=== PATIENT | female | born 1985 | race Caucasian/White ===

== ENCOUNTER 2024-06-10 17:47 | Outpatient (REF) | payer SELFPAY ==
[2024-06-10 17:48] VITALS: BP 123/97; PULSE 92; RESP 16; TEMP 36.3; O2SAT 100; BMI 28.7
--- NOTE | 2024-06-10 18:05 | EDS_ITS ---
HPI HPI - Female History of Present Illness Chief Complaint: Foreign Body Detail of Chief Complaint: Possible vaginal foreign body. Patient denies. Informant: patient Narrative Narrative: 39-year-old female history of hep C currently at the [facility], [facility]. has a concern that there may be a vaginal foreign body possibly drugs. They saw something on her scanner. They want the patient to be examined for it. Patient is willing to have a pelvic exam. She denies any complaints. She denies any pain or bleeding. She has had prior C-sections but no prior hysterectomy. Prior similar symptoms: No Recent Illness/Hospitalization: No PFSH PFSH Allergy/AdvReac Type Severity Reaction Status Date / Time No Known Allergies Allergy Verified 06/10/24 17:50 Social History Smoking Status: Current every day smoker tobacco type: e-cigarettes ROS ROS ED ROS Narrative Patient denies any recent illness. Constitutional Constitutional ED: Denies chills or fever(s) Eyes Eyes: Denies blurry vision ENT ENT ED: Denies ear pain Cardiovascular Cardiovascular: Denies chest pain or palpitations Respiratory/Chest Respiratory/Chest: Denies cough or dyspnea Gastrointestinal Gastrointestinal: Denies abdominal pain Genitourinary Genitourinary ED: Denies dysuria or hematuria Musculoskeletal Musculoskeletal: Denies arthralgias Integumentary Denies abscess Neurologic Neurologic: Denies headache(s) Psychiatric Psychiatric: Denies anxiety or depression Endocrine Endocrinology: Denies heat intolerance Hematologic/Lymphatic Hematologic/Lymphatic: Denies easy bleeding Allergic/Immunologic Allergic/Immunologic ED: Denies mouth swelling or tongue swelling EXAM Physical Exam Narrative Exam Narrative: Well-appearing 39-year-old female sitting upright in bed. 's officer present in the room. Patient no distress. Vital signs stable afebrile. H EENT exam unremarkable. Lungs clear. Heart regular rate and rhythm no murmur rate about 90. Abdomen soft nontender. Normal bowel sounds no peritoneal signs. Moving all 4 extremities. Nontender no edema. She is handcuffed. She is awake and alert. No focal motor deficits. Const Vital Signs: 06/10/24 17:48 06/10/24 18:30 Temperature 97.4 F L Temperature Source Temporal Pulse Rate 92 Respiratory Rate 16 Respiratory Effort Normal Non-Labored Respiratory Pattern Normal Blood Pressure 123/97 H Blood Pressure Mean 105 Pulse Ox 100 Oxygen Delivery Method Room Air Positive well nourished and well developed; Negative for obese, cachectic, contractures or unkempt General Appearance ED: well developed and NAD; Negative for unkempt, cachectic, contractures or pallor Nutritional Appearance: Negative for cachectic or obese HEENT Reports moist mucous membranes Negative for trauma or tenderness Eyes PERRL and EOMs intact bilaterally Neck no lymphadenopathy, supple and no JVD Chest Wall inspection of chest normal and palpation of chest normal Resp normal respiratory effort and clear to auscultation bilaterally Cardio regular rate, regular rhythm, S1 normal heart sound, no murmurs and no JVD GI normal to inspection, nondistended, normoactive bowel sounds, soft to palpation, non-tender, non-distended and no masses Auscultation: normoactive bowel sounds Palpation: Negative for tender or guarding Back/Spine no CVA tenderness General Back: Negative for CVA tenderness Cervical Spine: Negative for cervical spine tenderness Thoracic Spine / Upper Back: Negative for thoracic spinal tenderness Lumbar Spine / Lower Back: Negative for lumbar spinal tenderness Sacrum: Negative for other Extremity normal to inspection and full ROM General Extremety ED: Negative for edema or tenderness General Extremity: Negative for edema Neuro oriented x3 and CN's II-XII intact bilaterally Sensorium / Orientation: alert, oriented to person, oriented to place and oriented to time; Negative for confused, lethargic or stuporous Motor Exam: strength 5/5 throughout Psych mental status grossly normal Appearance: Negative for unkempt Attitude: No agitated Speech: No other Mood & Affect: Negative for depressed, anxious or tearful Skin no rashes or lesions noted and no wounds General Skin Exam: Negative for jaundice or pallor Rashes: No rashes noted Trauma: Negative for other MDM MDM MDM Narrative Medical decision making narrative: 39-year-old female possible vaginal foreign body. Patient is willing to have a pelvic exam done. With a nurse becomes available we will do a pelvic exam. Otherwise her exam is benign. She will be discharged back to the alf. Pelvic exam was done female nurse present in the room. External exam unremarkable. Speculum exam no bleeding. No foreign body noted. No significant abnormality. Bimanual exam again no foreign body detected. History & Record Review Discussion w/independent historian: Patient Discharge Plan Triage Chief Complaint: Foreign Body ED Provider: Alvino Sinha Dx/Rx/DC Orders Clinical Impression: Visit for pelvic exam Primary Care Provider: Care Physician,No Primary Referrals: Care Physician,No Primary [Primary Care Provider] - Activity Restrictions/Additional Instructions: Bimanual on pelvic exam was done with a speculum no foreign body was seen. No significant abnormality. Print Language: Mongolian Disposition Disposition: Home, Self Care
[2024-06-10 18:46] VITALS: BP 114/76; PULSE 68; RESP 15; TEMP 36.2; O2SAT 99
== END 2024-06-10 18:47 | disposition home or self-care (01) ==
LOC: ED 17:47
PROVIDERS: Visit Provider Emergency Medicine
DX: T19.2XXA Foreign body in vulva and vagina, initial encounter (principal); F17.290 Nicotine dependence, other tobacco product, uncomplicated

== ENCOUNTER → 2024-06-26 | Outpatient (CLI) | payer MEDICAID, SELFPAY ==
[2024-06-26 09:39] LABS: Absolute Lymphocyte Count 2.66 X10^3/uL (0.83-4.51); Absolute Neutrophil Count 5.4 X10^3/uL (2.0-7.7); Basophil# 0.05 X10^3/uL; Basophil% 0.5 % (0-1); Eosinophil# 0.22 X10^3/uL; Eosinophils% 2.4 % (0-5); Hematocrit 37.7 % (37-47); Hemoglobin 11.7 g/dL (12.0-15.0); Lymphocyte # 2.66 X10^3/ul (0.83-4.51); Lymphocyte % 28.4 % (19-41); Mean Corpuscular Hgb 28.8 pg (27.0-32.0); Mean Corpuscular Volume 92.9 fL (81-99); Mean Platelet Vol. 8.2 fl (6.2-12.0); Monocyte# 0.96 X10^3/uL; Monocyte% 10.3 % (0-10); NRBC Flagged by Analyzer 0 % (0-5); Neutrophil # 5.42 X10^3/uL (2.7-7.7); Platelet Count 442 K/mm3 (150-450); RBC Distribution Width CV 13.3 % (11.6-14.6); RBC Distribution Width SD 45.7 fl (35.1-43.9); Red Blood Count 4.06 M/mm3 (4.2-5.4); White Blood Count 9.4 K/mm3 (4.4-11.0)
[2024-06-26 09:50] LABS: International Normalized Ratio 0.9; Prothrombin Time (Protime)PT. 12.4 SECONDS (11.7-14.9)
[2024-06-26 10:30] LABS: ALB/GLOB Ratio 0.8 RATIO (0.9-2.4); AST(SGOT) 41 U/L (15-37); Alanine Aminotransfer ALT/SGPT 60 U/L (13-56); Albumin, Serum 3.3 g/dL (3.2-5.0); Alkaline Phosphatase 60 U/L (45-117); Anion Gap 6 (5-15); BUN 11 mg/dL (7-18); BUN/Creat Ratio 16.8 RATIO (10-20); Chloride 107 mmol/L (98-107); Creatinine, Serum 0.65 mg/dL (0.55-1.02); EST Glomerular Filtration Rate 108 mL/min (>60); Est Glom Filt Rate - Afr Amer 130 mL/min (>60); Globulin 3.9 g/dL (2.2-4.2); Glucose 84 mg/dL (74-106); Potassium 3.9 mmol/L (3.5-5.1); Protein, Total 7.2 g/dL (6.4-8.2); Sodium Level 138 mmol/L (136-145)
[2024-06-26 10:52] LABS: HIV - WCH Non-Reactive (Nonreactive); Hepatitis B Surface Antibody Reactive; Hepatitis B Surface Antigen Non-Reactive (Nonreactive)
[2024-06-27 20:07] LABS: HCV Quant. RNA PCR 99100 IU/mL (.); HCV log 10 4.996 (.); Hepatitis A AB, Total Positive (Negative)
== END | disposition home or self-care (01) ==
PROVIDERS: Referring Provider Family Medicine; Visit Provider Family Medicine
DX: B18.2 Chronic viral hepatitis C (principal)
CPT/HCPCS: 36415; 80053; 85025; 85610; 86703; 86706; 86708; 87340; 87522

== ENCOUNTER → 2024-07-15 | Outpatient (CLI) | payer MEDICAID, SELFPAY ==
[2024-07-15 10:48] LABS: Valproic Acid (Depakene) Level 92 ug/mL (50-100)
[2024-07-15 11:05] LABS: Free T3 2.5 pg/mL (2.18-3.98); T4 Free Direct 0.79 ng/dL (0.76-1.46)
== END | disposition home or self-care (01) ==
LOC: LAB 08:12
PROVIDERS: Referring Provider Psychiatry & Neurology Psychiatry; Visit Provider Psychiatry & Neurology Psychiatry
DX: G40.909 Epilepsy, unspecified, not intractable, without status epilepticus (principal)
CPT/HCPCS: 36415; 80164; 84439; 84443; 84481

== ENCOUNTER → 2024-08-04 | Outpatient (CLI) | payer MEDICAID, SELFPAY ==
--- NOTE | 2024-08-04 13:33 | NEURO ---
NCS and/or EMG Patient Report Ordering Doctor: Dino Mcdonald DATE OF SERVICE: 08/04/24 Clinical Summary: 39 year old female patient with symptoms of numbness, tingling, and pain in both hands. Nerve Conduction Studies Summary: Nerve conduction studies of the bilateral upper extremities were performed. The median-D2 SNAP distal latencies bilaterally with reduced amplitude on the left side. The median-APB CMAP distal latencies were prolonged bilaterally with reduced amplitude on the left side. The median motor conduction velocity was reduced in the forearm segments bilaterally. Needle Examination Summary: Needle examination of select muscles of the bilateral upper extremities was normal. Impression: This is an abnormal study. There is electrodiagnostic evidence of the following - 1) Severe, left median mononeuropathy at the wrist (carpal tunnel syndrome), with secondary motor fiber axonal loss 2) Moderate, right median mononeuropathy at the wrist (carpal tunnel syndrome), with motor fiber demyelination There is no electrodiagnostic evidence of a right or left cervical radiculopathy. Multi Select Codes Neurology Neurology Interp Codes: 26969-81 Musc test done w/n test comp (interp) (2) and 75722-39 Nrv cndj test 9-10 studies (interp)
== END | disposition home or self-care (01) ==
PROVIDERS: Referring Provider Physician Assistant; Visit Provider Physician Assistant
DX: B18.2 Chronic viral hepatitis C (principal)
CPT/HCPCS: 95886; 95911